=== PATIENT | male | born 1990 | race Caucasian/White ===

== ENCOUNTER 2016-12-21 14:27 | Emergency (ER) | payer OTHER ==
[2016-12-21 14:33] VITALS: BMI 29.2
--- NOTE | 2016-12-21 16:01 | PDOC ---
History of Present Illness - General History Source: Patient Exam Limitations: No Limitations - History of Present Illness Initial Comments: 12/21/16 16:40 The patient is a 25-year-old male with no significant past medical history, and presents to the emergency department with diffuse abdominal pain and bloody diarrhea for 6 days, and left lower leg redness for 1 day. He reports he went to an ER in [place] and CT imaging revealed probable colitis. He was given Cipro and Flagyl but the doctor recommended that he not take the antibiotics. He reports that the bloody diarrhea has not ceased, and the pain is 10/10 in severity. He takes Tylenol and pain medication with moderate relief of pain. He also states that he noticed itchiness on his anterolateral left lower leg after coming home from school yesterday. He reports that this morning he noticed that a large fluid-filled lesion formed in the area with surrounding redness. He denies walking through grass and believes it may be an insect bite. The patient denies chest pain, shortness of breath, headache and dizziness. The patient denies fever, chills, nausea, vomit, and constipation. The patient denies dysuria, frequency, urgency and hematuria. Allergies: NKDA Past Surgical History: None reported Social History: No toxic habits reported PCP: Dr. Mast <Alana Templeton - Last Filed: 12/21/16 16:56> <Godwin Howell - Last Filed: 12/21/16 19:38> - General Chief Complaint: Bite Stated Complaint: LEFT LEG INFECTION, PAIN Time Seen by Provider: 12/21/16 14:52 Past History <Alana Templeton - Last Filed: 12/21/16 16:56> - Past Medical History GI Disorders: Yes (COLITIS) Other medical history: HEMORRHOIDS - Psycho/Social/Smoking Cessation Hx Anxiety: No Suicidal Ideation: No Smoking History: Never smoked Hx Alcohol Use: No Drug/Substance Use Hx: No Substance Use Type: None <Godwin Howell - Last Filed: 12/21/16 19:38> - Past Medical History Allergies/Adverse Reactions: Allergies Allergy/AdvReac Type Severity Reaction Status Date / Time No Known Allergies Allergy Verified 12/21/16 14:33 Home Medications: Ambulatory Orders Dicyclomine HCl 10 mg PO Q6H 12/21/16 Ondansetron [Zofran -] 4 mg PO TID 12/21/16 Review of Systems - Review of Systems Able to Perform ROS?: Yes Comments:: 12/21/16 16:40 GENERAL/CONSTITUTIONAL: No fever or chills. No weakness. HEAD, EYES, EARS, NOSE AND THROAT: No change in vision. No ear pain or discharge. No sore throat. CARDIOVASCULAR: No chest pain or shortness of breath. RESPIRATORY: No cough, wheezing, or hemoptysis. GASTROINTESTINAL: (+) Abdominal pain. (+) Diarrhea. No nausea, vomiting, or constipation. GENITOURINARY: No dysuria, frequency, or change in urination. MUSCULOSKELETAL: No joint or muscle swelling or pain. No neck or back pain. SKIN: (+) Redness and lesion on left lower leg. NEUROLOGIC: No headache, vertigo, loss of consciousness, or change in strength/ sensation. ENDOCRINE: No increased thirst. No abnormal weight change. HEMATOLOGIC/LYMPHATIC: No anemia, easy bleeding, or history of blood clots. ALLERGIC/IMMUNOLOGIC: No hives or skin allergy. <Alana Templeton - Last Filed: 12/21/16 16:56> *Physical Exam - Vital Signs Last Vital Signs Temp Pulse Resp BP Pulse Ox 98.0 F 81 20 123/74 99 12/21/16 14:29 12/21/16 14:29 12/21/16 14:29 12/21/16 14:29 12/21/16 14:29 - Physical Exam Comments: 12/21/16 16:56 GENERAL: Awake, alert, and fully oriented, in no acute distress HEAD: No signs of trauma EYES: PERRLA, EOMI, sclera anicteric, conjunctiva clear ENT: Auricles normal inspection, hearing grossly normal, nares patent, oropharynx clear without exudates. Moist mucosa NECK: Normal ROM, supple, no lymphadenopathy, JVD, or masses LUNGS: Breath sounds equal, clear to auscultation bilaterally. No wheezes, and no crackles HEART: Regular rate and rhythm, normal S1 and S2, no murmurs, rubs or gallops ABDOMEN: Soft, nontender, normoactive bowel sounds. No guarding, no rebound. No masses EXTREMITIES: Normal range of motion, no edema. No clubbing or cyanosis. No cords or tenderness NEUROLOGICAL: Cranial nerves II through XII grossly intact. Normal speech, normal gait SKIN: (+) 5x9 cm erythematous region on anterolateral left lower extremity with central blister filled with clear fluid. Warm, Dry, normal turgor. <Alana Templeton - Last Filed: 12/21/16 16:56> - Vital Signs Last Vital Signs Temp Pulse Resp BP Pulse Ox 98.0 F 81 20 123/74 99 12/21/16 14:29 12/21/16 14:29 12/21/16 14:29 12/21/16 14:29 12/21/16 14:29 <Godwin Howell - Last Filed: 12/21/16 19:38> ED Treatment Course - LABORATORY CBC & Chemistry Diagram: 12/21/16 16:26 12/21/16 16:26 <Alana Templeton - Last Filed: 12/21/16 16:56> - LABORATORY CBC & Chemistry Diagram: 12/21/16 16:26 12/21/16 18:05 <Godwin Howell - Last Filed: 12/21/16 19:38> *DC/Admit/Observation/Transfer - Attestations Scribe Attestion: 12/21/16 16:40 Documentation prepared by Alana Templeton, acting as phlebotomist medical lab assistant for Godwin Howell DO. <Alana Templeton - Last Filed: 12/21/16 16:56> - Discharge Dispostion Admit: No - Attestations Physician Attestion: 12/21/16 16:01 I, Dr. Godwin Howell, attest that this document has been prepared under my direction and personally reviewed by me in its entirety. I further attest, that it accurately reflects all work, treatment, procedures and medical decision -making performed by me. <Godwin Howell - Last Filed: 12/21/16 19:38> Diagnosis at time of Disposition: Colitis Cellulitis Qualifiers: Site of cellulitis: other site Qualified Code(s): L03.818 - Cellulitis of other sites - Discharge Dispostion Disposition: HOME Condition at time of disposition: Good - Referrals Referrals: Kirstie Mast MD [Primary Care Provider] - - Patient Instructions Printed Discharge Instructions: DI for Colitis, DI for Cellulitis -- Adult Additional Instructions: Bhupendra...... Follow up with Dr. Govea..., Take the bBactrim and the Flagyl....... Returnt to us if problems.... Best- Dr. Godwin Howell - Post Discharge Activity Work/School Note: Back to School
[2016-12-21] MEDS ORDERED: SODIUM CHLORIDE 2,000 ML IV STA (16:15)
[2016-12-21] MEDS ORDERED: LEVOFLOXACIN 750 MG IVPB 150 ML IVPB ONE ×2 (16:15→17:02)
[2016-12-21] MEDS ORDERED: METRONIDAZOLE 500 MG PREMIXED 100 ML IVPB ONE ×2 (16:15→17:03)
[2016-12-21 16:56] LABS: MEAN PLT VOLUME 8.4 fl (7.5-11.1); WHITE BLOOD COUNT 5.9 K/mm3 (4.0-10.0)
[2016-12-21 16:59] LABS: BASOPHIL 0.6 % (0-2.0); MCH 27.4 pg (25.7-33.7); MEAN CELL VOLUME 80.5 fl (80-96); NEUTROPHILS 60.4 % (42.8-82.8); PLATELET COUNT 217 K/MM3 (134-434); RDW 13.4 % (11.9-15.9)
[2016-12-21 17:19] LABS: INR 1.19 (0.82-1.09); PROTHROMBIN TIME (PATIENT) 13.1 SEC (9.98-11.88)
[2016-12-21] MEDS ORDERED: methylPREDNISolone ACET (DEPO) 40 MG/1 ML VIAL IM ONE (18:14)
[2016-12-21] MEDS ORDERED: methylPREDNISolone NA SUCC 125 MG/2 ML VIAL IVPB ONE (18:14)
[2016-12-21] MEDS ORDERED: methylPREDNISolone NA SUCC 125 MG/2 ML VIAL ONE (18:30)
[2016-12-21 18:40] VITALS: BP 117/81; PULSE 80; TEMP 98.1
[2016-12-21 19:15] LABS: ALBUMIN 3.5 g/dl (3.4-5.0); ALK PHOS 55 U/L (45-117); ANION GAP 8 (8-16); BILIRUBIN,TOTAL 0.4 mg/dL (0.2-1.0); CALCIUM 8.2 mg/dL (8.5-10.1); CO2 27 mmol/L (21-32); CREATININE 0.8 mg/dL (0.7-1.3); GLUCOSE,RANDOM 79 mg/dL (74-106); SGOT/AST 25 U/L (15-37); SGPT/ALT 42 U/L (12-78); TOT PROT 6.9 g/dl (6.4-8.2)
== END 2016-12-21 19:47 | disposition home or self-care (01) ==
LOC: JER 14:27 → JERFT 14:27 → JER 19:47
PROC: 3E0337Z Introduction of Electrolytic and Water Balance Substance into Peripheral Vein, Percutaneous Approach (ICD-10-PCS; principal; 2016-12-21)
PROC: 3E03329 Introduction of Other Anti-infective into Peripheral Vein, Percutaneous Approach (ICD-10-PCS; 2016-12-21)
PROC: 3E03329 Introduction of Other Anti-infective into Peripheral Vein, Percutaneous Approach (ICD-10-PCS; 2016-12-21)
PROC: 3E0333Z Introduction of Anti-inflammatory into Peripheral Vein, Percutaneous Approach (ICD-10-PCS; 2016-12-21)
PROC: 3E0233Z Introduction of Anti-inflammatory into Muscle, Percutaneous Approach (ICD-10-PCS; 2016-12-21)
DX: K52.9 Noninfective gastroenteritis and colitis, unspecified (principal); L03.116 Cellulitis of left lower limb
CPT/HCPCS: 36415; 80053; 83605; 83690; 85025; 85610; 87040; 96361; 96365; 96367; 96372; 96374; 99283-25

== ENCOUNTER 2017-05-18 14:55 | Emergency (ER) | payer OTHER ==
[2017-05-18 15:36] VITALS: BP 121/72; PULSE 72; TEMP 98.2; BMI 29.5
--- NOTE | 2017-05-18 15:37 | PDOC ---
Rapid Medical Evaluation Time Seen by Provider: 05/18/17 15:32 Medical Evaluation: Allergies Allergy/AdvReac Type Severity Reaction Status Date / Time No Known Allergies Allergy Verified 05/18/17 15:32 02 15:32 The patient presents with a chief complaint of: Fell down steps on Thursday d/t black ice. c/o neck and back pain. Slight headache. Denies LOC, headtrauma. Also c/o BRBPR after the fall. Taken Motrin the past couple of days for pain. No abdominal pain. I have performed a brief in-person evaluation of this patient; Pertinent physical exam findings: ambulatory, in no respiratory distress. VSS. Non-tender abdomen I have ordered the following: CBC, CMP, Stool for occult blood The patient will proceed to the ED for further evaluation.
[2017-05-18 16:23] LABS: BASO % 0.7 % (0-2.0); EOS % 1.8 % (0-4.5); HEMATOCRIT 44.1 % (35.4-49); HEMOGLOBIN 14.7 GM/dL (11.7-16.9); LYMPH % 23.3 % (8-40); MCH 26.9 pg (25.7-33.7); MCHC 33.4 g/dl (32.0-35.9); MEAN CELL VOLUME 80.5 fl (80-96); MEAN PLT VOLUME 8.2 fl (7.5-11.1); MONO % 11.8 % (3.8-10.2); NEUT % 62.4 % (42.8-82.8); PLATELET COUNT 253 K/MM3 (134-434); RBC 5.48 M/mm3 (4.00-5.60); RDW 13.3 % (11.9-15.9); WHITE BLOOD COUNT 4.1 K/mm3 (4.0-10.0)
[2017-05-18 16:36] LABS: INR 1.16 (0.82-1.09); PROTHROMBIN TIME (PATIENT) 13.1 SEC (9.98-11.88)
[2017-05-18 16:50] LABS: ALBUMIN 4.1 g/dl (3.4-5.0); ANION GAP 7 (8-16); BLOOD UREA NITROGEN 12 mg/dL (7-18); CALCIUM 8.9 mg/dL (8.5-10.1); CHLORIDE 105 mmol/L (98-107); CO2 28 mmol/L (21-32); CREATININE 1.2 mg/dL (0.7-1.3); GLUCOSE,RANDOM 90 mg/dL (74-106); POTASSIUM 4.2 mmol/L (3.5-5.1); SGOT/AST 26 U/L (15-37); SGPT/ALT 40 U/L (12-78); SODIUM 140 mmol/L (136-145)
[2017-05-18 16:53] LABS: ALK PHOS 66 U/L (45-117); BILIRUBIN,TOTAL 0.7 mg/dL (0.2-1.0); TOT PROT 7.4 g/dl (6.4-8.2)
--- NOTE | 2017-05-18 18:19 | PDOC ---
History of Present Illness - General History Source: Patient Exam Limitations: No Limitations - History of Present Illness Initial Comments: 05/18/17 18:23 The patient is a 26 year old male with history of ulcerative colitis who presents to the ED complaining of back pain s/p mechanical fall 3 days ago. The patient reports he slipped and fell down the stairs, landing on his lower back at the onset of his pain. No head trauma or LOC. He states his pain is progressively worsening and radiates to his neck. His pain is exacerbated by moving his neck. The patient also reports bright red blood per rectum today with associated subjective fever and chills. No bladder or bowel incontinence. No numbness, tingling, or focal weakness. No nausea, vomiting, or diarrhea. No chest pain or shortness of breath. <Macey Macedo - Last Filed: 05/18/17 18:23> <Debbie Ramirez - Last Filed: 05/19/17 00:10> - General Chief Complaint: Injury Stated Complaint: FALL/ BACK, NECK PAIN/BLOOD IN STOOL Time Seen by Provider: 05/18/17 15:32 Past History <Macey Macedo - Last Filed: 05/18/17 18:23> - Past Medical History COPD: No GI Disorders: Yes (COLITIS) - Suicide/Smoking/Psychosocial Hx Smoking History: Never smoked Have you smoked in the past 12 months: No Information on smoking cessation initiated: No Hx Alcohol Use: No Drug/Substance Use Hx: No Substance Use Type: None <Debbie Ramirez - Last Filed: 05/19/17 00:10> - Past Medical History Allergies/Adverse Reactions: Allergies Allergy/AdvReac Type Severity Reaction Status Date / Time No Known Allergies Allergy Verified 05/18/17 15:32 Home Medications: Ambulatory Orders Mesalamine [Apriso] 0.375 gm PO QID 05/18/17 Review of Systems - Review of Systems Able to Perform ROS?: Yes Comments:: 05/18/17 18:27 GENERAL/CONSTITUTIONAL: +Sbjective fever, chills x 1 day. No generalized weakness. HEAD, EYES, EARS, NOSE AND THROAT: No change in vision. No ear pain or discharge. No sore throat. CARDIOVASCULAR: No chest pain or shortness of breath. RESPIRATORY: No cough, wheezing, or hemoptysis. GASTROINTESTINAL: +BRBPR x 1 day. No vomiting, diarrhea or constipation. GENITOURINARY: No dysuria, frequency, or change in urination. MUSCULOSKELETAL: +Back pain radiating to the neck. No joint or muscle swelling or pain. SKIN: No rash NEUROLOGIC: No headache, vertigo, loss of consciousness, or change in strength/ sensation. ENDOCRINE: No increased thirst. No abnormal weight change. HEMATOLOGIC/LYMPHATIC: No anemia, easy bleeding, or history of blood clots. ALLERGIC/IMMUNOLOGIC: No hives or skin allergy. <Macey Macedo - Last Filed: 05/18/17 18:23> *Physical Exam - Vital Signs Last Vital Signs Temp Pulse Resp BP Pulse Ox 98.2 F 72 18 121/72 100 05/18/17 15:33 05/18/17 15:33 05/18/17 15:33 05/18/17 15:33 05/18/17 15:33 - Physical Exam Comments: 05/18/17 18:30 GENERAL: Awake, alert, and fully oriented, in no acute distress HEAD: No signs of trauma EYES: PERRLA, EOMI, sclera anicteric, conjunctiva clear ENT: Auricles normal inspection, hearing grossly normal, nares patent, oropharynx clear without exudates. Moist mucosa NECK: Normal ROM, supple, no lymphadenopathy, JVD, or masses LUNGS: Breath sounds equal, clear to auscultation bilaterally. No wheezes, and no crackles HEART: Regular rate and rhythm, normal S1 and S2, no murmurs, rubs or gallops ABDOMEN: Soft, nontender, normoactive bowel sounds. No guarding, no rebound. No masses BACK/NECK: +R flank tenderness. No midline lumbar or cervical tenderness. No stepoff. EXTREMITIES: Normal range of motion, no edema. No clubbing or cyanosis. No cords, erythema, or tenderness NEUROLOGICAL: Cranial nerves II through XII grossly intact. Normal speech, normal gait SKIN: Warm, Dry, normal turgor, no rashes or lesions noted. RECTAL: No thrombosed hemorrhoids. +BRB, no melena noted. <Macey Macedo - Last Filed: 05/18/17 18:23> - Vital Signs Last Vital Signs Temp Pulse Resp BP Pulse Ox 98.2 F 72 18 121/72 100 05/18/17 15:33 05/18/17 15:33 05/18/17 15:33 05/18/17 15:33 05/18/17 15:33 <Debbie Ramirez - Last Filed: 05/19/17 00:10> ED Treatment Course - LABORATORY CBC & Chemistry Diagram: 05/18/17 16:06 05/18/17 16:06 - ADDITIONAL ORDERS Additional order review: Laboratory Results 05/18/17 05/18/17 16:06 16:06 PT with INR 13.10 H INR 1.16 H Sodium 140 Potassium 4.2 Chloride 105 Carbon Dioxide 28 Anion Gap 7 L BUN 12 Creatinine 1.2 D Creat Clearance w eGFR > 60 Random Glucose 90 Calcium 8.9 Total Bilirubin 0.7 D AST 26 ALT 40 Alkaline Phosphatase 66 Total Protein 7.4 Albumin 4.1 05/18/17 16:06 RBC 5.48 MCV 80.5 MCHC 33.4 RDW 13.3 MPV 8.2 Neutrophils % 62.4 Lymphocytes % 23.3 Monocytes % 11.8 H Eosinophils % 1.8 Basophils % 0.7 <Macey Macedo - Last Filed: 05/18/17 18:23> - LABORATORY CBC & Chemistry Diagram: 05/18/17 16:06 05/18/17 16:06 - ADDITIONAL ORDERS Additional order review: Laboratory Results 05/18/17 05/18/17 16:06 16:06 PT with INR 13.10 H INR 1.16 H Sodium 140 Potassium 4.2 Chloride 105 Carbon Dioxide 28 Anion Gap 7 L BUN 12 Creatinine 1.2 D Creat Clearance w eGFR > 60 Random Glucose 90 Calcium 8.9 Total Bilirubin 0.7 D AST 26 ALT 40 Alkaline Phosphatase 66 Total Protein 7.4 Albumin 4.1 05/18/17 16:06 RBC 5.48 MCV 80.5 MCHC 33.4 RDW 13.3 MPV 8.2 Neutrophils % 62.4 Lymphocytes % 23.3 Monocytes % 11.8 H Eosinophils % 1.8 Basophils % 0.7 - RADIOLOGY Radiology Studies Ordered: Category Date Time Status CERVICAL SPINE CT W/O CONTR [CT] Stat CT Scan 05/18/17 18:[address] W/O CONTRAST [CT] Stat CT Scan 05/18/17 18:11 Ordered <Debbie Ramirez - Last Filed: 05/19/17 00:10> Medical Decision Making - Medical Decision Making 05/19/17 00:09 26-year-old male who reports falling several days ago on cement steps presents with right flank pain that he states radiates up to his neck. He is ambulating with ease. Extremities show no deformity. No tenderness. Full range of motion. CAT scan of the cervical spine was negative for any fracture, subluxation CAT scan of the lumbar spine did not show any fracture, subluxation. Patient was told to follow-up with orthopedics if he has persistent symptoms <Debbie Ramirez - Last Filed: 05/19/17 00:10> *DC/Admit/Observation/Transfer - Attestations Scribe Attestion: 05/18/17 18:39 Documentation prepared by Macey Macedo, acting as medical records tech for Debbie Ramirez MD. <Macey Macedo - Last Filed: 05/18/17 18:23> <Debbie Ramirez - Last Filed: 05/19/17 00:10> Diagnosis at time of Disposition: Neck pain Back pain Qualifiers: Back pain location: low back pain Chronicity: acute Back pain laterality: right Sciatica presence: without sciatica Qualified Code(s): M54.5 - Low back pain - Discharge Dispostion Disposition: HOME Condition at time of disposition: Stable - Referrals Referrals: Kirstie Mast MD [Primary Care Provider] - - Patient Instructions Printed Discharge Instructions: DI for Low Back Pain, DI for Neck Pain Additional Instructions: please take your medications for pain control If your symptoms persist,followup with orthopedics - Post Discharge Activity Forms/Work/School Notes: Back to Work
[2017-05-18] MEDS ORDERED: IBUPROFEN 600 MG TABLET (FP) PO ONE ×2 (18:20)
== END 2017-05-18 20:32 | disposition home or self-care (01) ==
LOC: JER 14:55
DX: M54.5 Low back pain (principal); M54.2 Cervicalgia; W00.1XXA Fall from stairs and steps due to ice and snow, initial encounter; Y93.89 Activity, other specified; Y92.89 Other specified places as the place of occurrence of the external cause; Y99.8 Other external cause status; K62.5 Hemorrhage of anus and rectum; Z87.19 Personal history of other diseases of the digestive system
CPT/HCPCS: 36415; 72125-TC; 72131-TC; 80053; 85025; 85610; 99283-25

== ENCOUNTER 2017-11-20 18:15 | Emergency (ER) | payer OTHER ==
[2017-11-20 18:48] VITALS: BP 133/67; PULSE 65; TEMP 98.4; BMI 27.7
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
== END 2017-11-20 20:29 | disposition home or self-care (01) ==
LOC: JERFT 18:15
CPT/HCPCS: 72050-TC-FY; 99281-25

== ENCOUNTER 2018-09-17 15:07 | Emergency (ER) | payer OTHER | END 2018-09-17 18:10 | disposition home or self-care (01) | LOC: JER 15:07 ==

== ENCOUNTER 2020-01-03 03:38 | Emergency (ER) | payer OTHER ==
[2020-01-03 03:53] VITALS: BMI 30.2
[2020-01-03] MEDS ORDERED: ACETAMINOPHEN 1000 MG/100 ML VIAL (NON FORMULARY) IVPB ONE (03:54)
--- OUTSIDE RECORDS SUMMARY | 2020-01-03 03:55 | XMS ---
:1990 Author Organization [facility] Support Name Relationship Address Phone UE Unavailable Unavailable Unavailable PORSCHE JENSEN FATHER [address] [place] [address] Re-disclosure Warning The records that you are about to access may contain information from federally- assisted alcohol or drug abuse programs. If such information is present, then the following federally mandated warning applies: This information has been disclosed to you from records protected by federal confidentiality rules (42 CFR part 2). The federal rules prohibit you from making any further disclosure of this information unless further disclosure is expressly permitted by the written consent of the person to whom it pertains or as otherwise permitted by 42 CFR part 2. A general authorization for the release of medical or other information is NOT sufficient for this purpose. The Federal rules restrict any use of the information to criminally investigate or prosecute any alcohol or drug abuse patient.The records that you are about to access may contain highly sensitive health information, the redisclosure of which is protected by Article 27-F of the [facility] Public Health law. If you continue you may haveaccess to information: Regarding HIV / AIDS; Provided by facilities licensed or operated by the [facility] Office of Mental Health; or Provided by the [facility] Office for People With Developmental Disabilities. If such information is present, then the following [facility] mandated warning applies: This information has been disclosed to you from confidential records which are protected by state law. State law prohibits you from making any further disclosure of this information without the specific written consent of the person to whom it pertains, or as otherwise permitted by law. Any unauthorized further disclosure in violation of state law may result in a fine or detention sentence or both. A general authorization for the release of medical or other information is NOT sufficient authorization for further disclosure. Insurance Providers Payer name Policy type Policy ID Covered Covered democrat's Policy P collins / Coverage democrat ID relationship to [employer] Inf ormation type shaw FRANK [id number] SP [id number] HEALTH NON [facility] [id number] [place] [id number] CARE HMO/POS/EPO SELF PAY INSURANCE MEDICAID [id number] SP [id number]
--- NOTE | 2020-01-03 03:58 | PDOC ---
History of Present Illness - General Chief Complaint: SIRS, Suspected/Possible Stated Complaint: FEVER,VOMITING - History of Present Illness Initial Comments: 29 YOM h/o UC presents with fever, chills, headache, diarrhea, sore throat since this afternoon. Patient reports that yesterday he had some minor throat irritation and ear pain. This AM woke up with worse sx, over the course of the day began to feel feverish, took temp at home to 102s. Also reports some abdominal pain and blood in stool today which has occurred in the past and he attributes to his UC. Reports co worker with fever and vomiting, not wearing mask. Denies CP, SOB. Constitutional: No Weight Change, + Fever, + Chills, No Night Sweats, No Fatigue, No Malaise ENT/Mouth: No Hearing Changes, + Ear Pain, No Nasal Congestion, No Sinus Pain, No Hoarseness, + sore throat, No Rhinorrhea, No Swallowing Difficulty Eyes: No Eye Pain, No Swelling, No Redness, No Foreign Body, No Discharge, No Vision Changes Cardiovascular: No Chest Pain, No SOB, No PND, No Dyspnea on Exertion, No O rthopnea, No Claudication, No Edema, No Palpitations Respiratory: No Cough, No Sputum, No Wheezing, No Smoke Exposure, No Dyspnea Gastrointestinal: No Nausea, No Vomiting, + Diarrhea, No Constipation, No Pain, No Heartburn, No Anorexia, No Dysphagia, + Hematochezia, No Melena, No Flatulence, No Jaundice Genitourinary: No Dysmenorrhea, No DUB, No Dyspareunia, No Dysuria, No Urinary Frequency, No Hematuria, No Urinary Incontinence, No Urgency, No Flank Pain, No Urinary Flow Changes, No Hesitancy Musculoskeletal: No Arthralgias, No Myalgias, No Joint Swelling, No Joint Stiffness, No Back Pain, No Neck Pain, No Injury History Skin: No Skin Lesions, No Pruritis, No Hair Changes, No Breast/Skin Changes, No Nipple Discharge Neuro: No Weakness, No Numbness, No Paresthesias, No Loss of Consciousness, No Syncope, No Dizziness, No Headache, No Coordination Changes, No Recent Falls Psych: No Anxiety/Panic, No Depression, No Insomnia, No Personality Changes, No Delusions, No Rumination, No SI/HI/AH/VH, No Social Issues, No Memory Changes, No Violence/Abuse Hx., No Eating Concerns Heme/Lymph: No Bruising, No Bleeding, No Transfusions History, No Lymphadenopathy Endocrine: No Polyuria, No Polydipsia, No Temperature Intolerance Exam: HEENT: + left ear with erythema of TM, pharynx non erythematous, no exudates pulm: CTAB, no wheeze, rhales, or rhonchi CV: RRR, no rubs, murmurs or gallops abdomen: TTP RLQ Past History - Medical History Allergies/Adverse Reactions: Allergies Allergy/AdvReac Type Severity Reaction Status Date / Time No Known Allergies Allergy Verified 01/03/20 04:02 Home Medications: Ambulatory Orders Ibuprofen 800 mg PO TID PRN #20 tablet 11/20/17 Methocarbamol [Robaxin -] 500 mg PO BID PRN #14 tablet 11/20/17 COPD: No GI Disorders: Yes (ULCERATIVE COLITIS) - Immunization History Immunization Up to Date: No - Psycho-Social/Smoking History Smoking History: Never smoked Have you smoked in the past 12 months: No - Substance Abuse Hx (Audit-C & DAST Scrn) How often the patient has a drink containing alcohol: Never Score: In Men: 4 or > Positive; In Women: 3 or > Positive: 0 Screen Result (Pos requires Nsg. Audit-10AR): Negative *Physical Exam - Vital Signs Last Vital Signs Temp Pulse Resp BP Pulse Ox 102.5 F H 121 H 20 128/83 97 01/03/20 03:48 01/03/20 03:48 01/03/20 03:48 01/03/20 03:48 01/03/20 03:48 ED Treatment Course - LABORATORY CBC & Chemistry Diagram: 01/03/20 05:27 01/03/20 05:27 Medical Decision Making - Medical Decision Making 29 YOM h/o UC with sepsis, abdominal pain, sore throat, ear pain - fever to 102.5, HR 120s - sepsis work up + COVID + rapid strep reassess: lactate 2.8 labs, CXR, UA unremarkable still uncertain of source, sending patient to CT given RLQ TTP dispo is to admit pending CT 01/03/20 06:57 Discharge - Discharge Information Problems reviewed: Yes Clinical Impression/Diagnosis: Fever Condition: Fair - Follow up/Referral Referrals: Ana Maria Tracy MD [Primary Care Provider] - - Patient Discharge Instructions - Post Discharge Activity
[2020-01-03] MEDS ORDERED: SODIUM CHLORIDE 1,000 ML IV SCH ×3 (04:00→06:30)
--- NOTE | 2020-01-03 04:03 | PDOC ---
Attending Attestation - Resident Resident Name: Pancho Morel - ED Attending Attestation I have performed the following: I have examined & evaluated the patient, The case was reviewed & discussed with the resident, I agree w/resident's findings & plan - HPI HPI: 01/03/20 06:39 see resident hpi - Physicial Exam PE: 01/03/20 06:39 see resident exam - Medical Decision Making 01/03/20 06:39 29-year-old male with sore throat left ear pain and fever found to have elevated lactic acid as well as right lower quadrant tenderness on reexam Rapid strep is negative Plan for additional liter of IV fluid, will sign out CT scan abdomen and pelvis and repeat lactic to dayshift Discharge - Discharge Information Problems reviewed: Yes Clinical Impression/Diagnosis: Fever Condition: Fair - Follow up/Referral Referrals: Ana Maria Tracy MD [Primary Care Provider] - - Patient Discharge Instructions - Post Discharge Activity
[2020-01-03] MEDS ORDERED: ACETAMINOPHEN INJECTION 100 ML IVPB ONE (04:10)
[2020-01-03] MEDS ORDERED: SODIUM CHLORIDE 2,790 ML IV ONE (04:11)
[2020-01-03] MEDS ORDERED: ONDANSETRON 4 MG/2 ML VIAL IVPUSH ONE (04:35)
[2020-01-03 05:33] LABS: BASO % 0.4 % (0-2.0); EOS % 0.1 % (0-4.5); HEMATOCRIT 42.8 % (35.4-49); HEMOGLOBIN 14.3 GM/dL (11.7-16.9); LYMPH % 7.3 % (8-40); MCH 26.9 pg (25.7-33.7); MCHC 33.3 g/dl (32.0-35.9); MEAN CELL VOLUME 80.7 fl (80-96); NEUT % 86.2 % (42.8-82.8); PLATELET COUNT 231 K/MM3 (134-434); RDW 13.5 % (11.9-15.9); WHITE BLOOD COUNT 7.8 K/mm3 (4.0-10.0)
[2020-01-03 05:47] LABS: INR 1.13 (0.83-1.09); PROTHROMBIN TIME (PATIENT) 13.3 SEC (9.7-13.0)
[2020-01-03 05:49] LABS: ACTIVATED PTT 29.3 SECONDS (25.2-36.5)
[2020-01-03 06:05] LABS: EPI CELLS 3 /uL (0-25.1); HYALINE CASTS 0 /uL (0-3.1); URINE APPEARANCE CLEAR; URINE BACTERIA 2 /uL (0-1359); URINE BILIRUBIN NEGATIVE (NEGATIVE); URINE COLOR YELLOW; URINE GLUCOSE (UA) NEGATIVE (NEGATIVE); URINE KETONE NEGATIVE (NEGATIVE); URINE LEUK ESTERASE NEGATIVE (NEGATIVE); URINE NITRITE NEGATIVE (NEGATIVE); URINE PROTEIN NEGATIVE (NEGATIVE); URINE RBC 69 /uL (0-23.9); URINE UROBILINOGEN 0.2 mg/dL (0.2-1.0); URINE WBC 2 /uL (0-25.8)
[2020-01-03 06:14] LABS: ALBUMIN 4.2 g/dl (3.4-5.0); BILIRUBIN,TOTAL 0.4 mg/dL (0.2-1); BLOOD UREA NITROGEN 13.2 mg/dL (7-18); CALCIUM 8.9 mg/dL (8.5-10.1); CREATININE 1.2 mg/dL (0.55-1.3); POTASSIUM 4.2 mmol/L (3.5-5.1)
[2020-01-03 06:38] VITALS: BP 118/82; PULSE 102; TEMP 99.6
--- NOTE | 2020-01-03 09:38 | EKG ---
Test Reason : Blood Pressure : / mmHG Vent. Rate : 090 BPM Atrial Rate : 090 BPM P-R Int : 160 ms QRS Dur : 080 ms QT Int : 330 ms P-R-T Axes : 058 056 028 degrees QTc Int : 403 ms NORMAL SINUS RHYTHM NORMAL ECG WHEN COMPARED WITH ECG OF 17-SEP-2018 17:47, NO SIGNIFICANT CHANGE WAS FOUND Confirmed by James Frank ([id number]) on 01/03/2020 9:38:19 AM Referred By: Confirmed By:James Frank
--- NOTE | 2020-01-03 10:10 | PDOC ---
*Physical Exam - Vital Signs Last Vital Signs Temp Pulse Resp BP Pulse Ox 99.6 F 102 H 18 118/82 97 01/03/20 06:37 01/03/20 06:37 01/03/20 06:37 01/03/20 06:37 01/03/20 06:37 ED Treatment Course - LABORATORY CBC & Chemistry Diagram: 01/03/20 05:27 01/03/20 05:27 - ADDITIONAL ORDERS Additional order review: Laboratory Results 01/03/20 01/03/20 01/03/20 08:40 05:40 05:27 PT with INR INR PTT (Actin FS) Sodium Potassium Chloride Carbon Dioxide Anion Gap BUN Creatinine Est GFR (CKD-EPI)AfAm Est GFR (CKD-EPI)NonAf Random Glucose Lactic Acid 1.5 2.6 H* Calcium Total Bilirubin AST ALT Alkaline Phosphatase Troponin I Total Protein Albumin Urine Color Yellow Urine Appearance Clear Urine pH 8.0 Ur Specific Savage 1.018 Urine Protein Negative Urine Glucose (UA) Negative Urine Ketones Negative Urine Blood 1+ H Urine Nitrite Negative Urine Bilirubin Negative Urine Urobilinogen 0.2 Ur Leukocyte Esterase Negative Urine WBC (Auto) 2 Urine RBC (Auto) 69 Urine Casts (Auto) 0 U Epithel Cells (Auto) 3 Urine Bacteria (Auto) 2 01/03/20 01/03/20 01/03/20 05:27 05:27 05:27 PT with INR 13.30 H INR 1.13 H PTT (Actin FS) 29.3 Sodium 136 Potassium 4.2 Chloride 102 Carbon Dioxide 26 Anion Gap 8 BUN 13.2 Creatinine 1.2 Est GFR (CKD-EPI)AfAm 94.80 Est GFR (CKD-EPI)NonAf 81.80 Random Glucose 108 H Lactic Acid Calcium 8.9 Total Bilirubin 0.4 AST 19 ALT 25 Alkaline Phosphatase 63 Troponin I < 0.02 Total Protein 8.0 Albumin 4.2 Urine Color Urine Appearance Urine pH Ur Specific Savage Urine Protein Urine Glucose (UA) Urine Ketones Urine Blood Urine Nitrite Urine Bilirubin Urine Urobilinogen Ur Leukocyte Esterase Urine WBC (Auto) Urine RBC (Auto) Urine Casts (Auto) U Epithel Cells (Auto) Urine Bacteria (Auto) 01/03/20 05:27 RBC 5.30 MCV 80.7 MCHC 33.3 RDW 13.5 MPV 8.0 Neutrophils % 86.2 H D Lymphocytes % 7.3 L D Monocytes % 6.0 Eosinophils % 0.1 D Basophils % 0.4 - Medications Given in the ED: ED Medications Discontinued Medications Generic Name Dose Route Start Last Admin Trade Name Neri PRN Reason Stop Dose Admin Acetaminophen 1,000 mg 01/03/20 03:54 01/03/20 05:20 Ofirmev Injection - IVPB 01/03/20 03:55 1,000 mg ONCE ONE Administration Sodium Chloride 1,000 mls @ 0 mls/hr 01/03/20 04:00 01/03/20 06:23 Normal Saline - IV Not Given ASDIR JEAN CARLOS Wide Open Sodium Chloride 2,790 mls @ 1,395 mls/hr 01/03/20 04:11 01/03/20 06:24 Normal Saline - 30 ml/kg infuse over 2 hr (2790 ml) 01/03/20 06:10 Not Given IV ONCE ONE Ondansetron HCl 4 mg 01/03/20 04:35 01/03/20 05:52 Zofran Injection IVPUSH 01/03/20 04:36 4 mg ONCE ONE Administration ED Progress Note - Progress Note Progress Note: 01/03/20 10:[address] A/P showed transverse colon wall thickening and mildly enlarged spleen. Repeat physical exam significant for mild RLQ tenderness without guarding or rebound. Will DC with GI f/u. Will call GI around noon for recs. 01/03/20 15:[address] Quiroz who appreciated the update. He is not sure that the patient truly has UC. No further recommendations regarding treatment. Outpatient follow up Discharge - Discharge Information Problems reviewed: Yes Clinical Impression/Diagnosis: Fever, Abdominal pain Condition: Stable Disposition: HOME - Admission No - Follow up/Referral Referrals: Ana Maria Tracy MD [Primary Care Provider] - Isaac Govea MD [Staff Physician] - - Patient Discharge Instructions Additional Instructions: You were seen in the ER for fever and abdominal pain. Your labs showed an elevated lactic acid, which went back down to normal several hours later. Your CT scan showed thickening of your large intestine as well as a mildly enlarged spleen. ?You should follow up with your commercial fisher and PCP as soon as possible. We will call your commercial fisher today and let you know if he has any recommendations. Please return to the ER if you have difficulty breathing, are unable to keep food down, difficulty getting out of bed, severe abdominal pain, or any other reason. - Post Discharge Activity
== END 2020-01-03 10:43 | disposition home or self-care (01) ==
LOC: JER 03:38
PROC: 3E0333Z Introduction of Anti-inflammatory into Peripheral Vein, Percutaneous Approach (ICD-10-PCS; principal; 2020-01-03)
PROC: 3E033GC Introduction of Other Therapeutic Substance into Peripheral Vein, Percutaneous Approach (ICD-10-PCS; 2020-01-03)
DX: R50.9 Fever, unspecified (principal); R10.9 Unspecified abdominal pain
CPT/HCPCS: 36415; 71045-TC-FY; 74177-TC; 80053; 81003; 83605; 84484; 85025; 85610; 85730; 87040; 87070; 87086; 87880; 93005; 93010; 99285-25; J0131; Q9967; U0003

== ENCOUNTER 2020-03-06 15:46 | Emergency (ER) | payer OTHER ==
[2020-03-06 15:59] VITALS: TEMP 98.4; BMI 31.0
[2020-03-06 18:04] LABS: BASO % 0.3 % (0-2.0); EOS % 1.2 % (0-4.5); HEMATOCRIT 46.1 % (35.4-49); HEMOGLOBIN 15.6 GM/dL (11.7-16.9); LYMPH % 27.2 % (8-40); MCH 27.5 pg (25.7-33.7); MCHC 33.8 g/dl (32.0-35.9); MEAN CELL VOLUME 81.3 fl (80-96); MEAN PLT VOLUME 8.2 fl (7.5-11.1); MONO % 7.4 % (3.8-10.2); NEUT % 63.9 % (42.8-82.8); PLATELET COUNT 269 K/MM3 (134-434); RBC 5.67 M/mm3 (4.00-5.60); RDW 13.2 % (11.9-15.9)
[2020-03-06 18:11] LABS: INR 1.08 (0.83-1.09)
[2020-03-06 18:13] LABS: ACTIVATED PTT 30.1 SECONDS (25.2-36.5)
[2020-03-06 18:23] VITALS: BP 129/87; PULSE 96
[2020-03-06 18:33] LABS: CHLORIDE 103 mmol/L (98-107); POTASSIUM 4.9 mmol/L (3.5-5.1); SODIUM 139 mmol/L (136-145)
[2020-03-06 18:36] LABS: ALBUMIN 4.5 g/dl (3.4-5.0); ANION GAP 7 MMOL/L (8-16); BLOOD UREA NITROGEN 11.9 mg/dL (7-18); CALCIUM 9.5 mg/dL (8.5-10.1); CO2 28 mmol/L (21-32); GLUCOSE,RANDOM 81 mg/dL (74-106)
[2020-03-06 18:37] LABS: MAGNESIUM 2.3 mg/dL (1.8-2.4)
[2020-03-06 18:39] LABS: SGOT/AST 39 U/L (15-37); SGPT/ALT 32 U/L (13-61)
[2020-03-06 18:40] LABS: BILIRUBIN,DIRECT 0.1 mg/dL (0.0-0.2)
[2020-03-06 18:41] LABS: BILIRUBIN,TOTAL 0.6 mg/dL (0.2-1); TOT PROT 8.5 g/dl (6.4-8.2)
[2020-03-06 18:42] LABS: ALK PHOS 68 U/L (45-117)
[2020-03-06 18:43] LABS: LDH 291 U/L (87-246)
== END 2020-03-06 20:12 | disposition home or self-care (01) ==
LOC: JER 15:46
DX: U07.1 COVID-19 (principal)
CPT/HCPCS: 71045-TC-FY; 80053; 82248; 82550; 82553; 82728; 83615; 83735; 84484; 85025; 85610; 85730; 86140; 93005; 93010; 99284-25; C9803; U0003

== ENCOUNTER 2022-02-19 18:03 | Emergency (ER) | payer OTHER ==
[2022-02-19 19:13] VITALS: BP 118/73; PULSE 16; RESP 83; TEMP 97.9; BMI 28.0
[2022-02-19] MEDS ORDERED: ACETAMINOPHEN 500 MG TABLET (FP) PO ONE (19:36)
[2022-02-19] MEDS ORDERED: CYCLOBENZAPRINE HCL 10 MG TABLET (FP) PO ONE (19:36)
[2022-02-19] MEDS ORDERED: KETOROLAC TROMETHAMINE 30 MG/1 ML VIAL IM ONE (19:36)
[2022-02-19] MEDS ORDERED: KETOROLAC TROMETHAMINE 30 MG/1 ML VIAL ONE (19:38)
[2022-02-19] MEDS ORDERED: CYCLOBENZAPRINE HCL 10 MG TABLET (FP) ONE (19:38)
[2022-02-19] MEDS ORDERED: ACETAMINOPHEN 500 MG TABLET (FP) ONE (19:38)
== END 2022-02-19 20:49 | disposition home or self-care (01) ==
LOC: JERFT 18:03 → JER 18:03 → JERFT 20:49
PROC: 3E0233Z Introduction of Anti-inflammatory into Muscle, Percutaneous Approach (ICD-10-PCS; principal; 2022-02-19)
DX: R07.9 Chest pain, unspecified (principal)
CPT/HCPCS: 71046-TC-FY; 93005; 93010; 99284-25

== ENCOUNTER 2024-03-25 04:20 | Day surgery (SDC) | payer OTHER ==
[2024-03-21 15:48] VITALS: BMI 29.1
[2024-03-25 10:40] VITALS: TEMP 97.9
[2024-03-25 11:25] VITALS: BP 122/68; PULSE 74; RESP 18
== END 2024-03-25 11:10 | disposition home or self-care (01) ==
LOC: JASU-ENDO 04:20
PROVIDERS: ATTEND Internal Medicine Gastroenterology
PROC: 0DB78ZX Excision of Stomach, Pylorus, Via Natural or Artificial Opening Endoscopic, Diagnostic (ICD-10-PCS; 2024-03-25)
PROC: 0DB68ZX Excision of Stomach, Via Natural or Artificial Opening Endoscopic, Diagnostic (ICD-10-PCS; 2024-03-25)
PROC: 0DB28ZX Excision of Middle Esophagus, Via Natural or Artificial Opening Endoscopic, Diagnostic (ICD-10-PCS; 2024-03-25)
PROC: 0DB38ZX Excision of Lower Esophagus, Via Natural or Artificial Opening Endoscopic, Diagnostic (ICD-10-PCS; 2024-03-25)
PROC: 0DB98ZX Excision of Duodenum, Via Natural or Artificial Opening Endoscopic, Diagnostic (ICD-10-PCS; principal; 2024-03-25 10:00)
DX: K29.50 Unspecified chronic gastritis without bleeding (principal); K21.9 Gastro-esophageal reflux disease without esophagitis
CPT/HCPCS: 88305-TC; 88342-TC

== ENCOUNTER 2025-01-31 21:22 | Emergency (ER) | payer OTHER ==
[2025-01-31 21:32] VITALS: BMI 30.7
[2025-01-31 22:24] LABS: MCHC 31.7 g/dl (32.3-36.5); MEAN CELL VOLUME 83.7 fl (79.0-92.2); MEAN PLT VOLUME 9.1 fl (9.4-12.4); RDW 13.2 % (12.0-15.6)
[2025-01-31 22:32] LABS: INR 1.13 (0.83-1.09); PROTHROMBIN TIME (PATIENT) 12.3 SEC (9.7-13.0)
[2025-01-31 22:35] LABS: ACTIVATED PTT 30.5 SECONDS (25.2-36.5)
[2025-01-31] MEDS ORDERED: FAMOTIDINE 20 MG/50 ML IVPB 20 MG/50 ML MG IVPB ONE (23:15)
[2025-01-31] MEDS: FAMOTIDINE 20 MG/50 ML IVPB 20 MG/50 ML MG IVPB ONE (23:17)
[2025-01-31 23:28] LABS: GLUCOSE,RANDOM 84 mg/dL (74-106); TOT PROT 7.7 g/dl (6.4-8.2)
[2025-01-31 23:29] LABS: CO2 23 mmol/L (21-32)
[2025-01-31 23:30] LABS: ALK PHOS 47 U/L (40-150)
[2025-01-31 23:33] LABS: CREATININE 1.15 mg/dL (0.55-1.3); SGOT/AST 26 U/L (5-34); SGPT/ALT 20 U/L (0-55)
[2025-01-31 23:42] LABS: HCV DIAGNOSTIC IN-HOUSE W/RFLX NON-REACTIVE (NONREACTIVE); HIV INTERPRETATION NEGATIVE (NEGATIVE)
[2025-01-31 23:50] VITALS: BP 125/75; PULSE 68; RESP 16; TEMP 97.8
== END 2025-02-01 00:03 | disposition home or self-care (01) ==
LOC: JER 21:22
PROC: 3E033GC Introduction of Other Therapeutic Substance into Peripheral Vein, Percutaneous Approach (ICD-10-PCS; principal; 2025-01-31)
DX: R07.2 Precordial pain (principal); R06.02 Shortness of breath; R55 Syncope and collapse
CPT/HCPCS: 36415; 71046-TC-FY; 80053; 82550; 84484; 85027; 85610; 85730; 86803; 87389; 93005; 93010; 96365; 99285-25